=== PATIENT | female | born 1960 | race Caucasian/White ===

== ENCOUNTER 2023-06-15 12:11 | Outpatient (OUT) | payer OTHER, SELFPAY ==
--- NOTE | 2023-06-15 12:42 | CA_ITS ---
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1960 Requested By: [id number] Order Number: [id number] Reading MD: ANGELIKA BARBOUR Interpretive Statements Predominant rhythm is sinus with average rate of 65 bpm Tachycardia - max rate of 125 bpm - longest episode of 17 minutes 1 second Bradycardia - min rate of 47 bpm - longest episode of 54 mimutes 42 seconds Ventricular ectopy - 1,216 events (<1% total) Patient triggered events: 2 Impression: Predominant rhythm is sinus with average rate of 65 bpm Fastest rate of 125 bpm and slowest rate of 47 bpm Ventricular ectopy < 1% total burden No atrial fibrillation No pauses of blocks Electronically Signed On 07-10-2023 6:41:36 EST by ANGELIKA BARBOUR
== END 2023-06-15 12:12 | disposition home or self-care (01) ==
PROVIDERS: PCP Family Medicine
DX: R00.0 Tachycardia, unspecified (principal)
CPT/HCPCS: 93270